=== PATIENT | female | born 1970 | race African-American/Black ===

== ENCOUNTER 2022-04-09 07:19 | Inpatient (IN) | payer MEDICARE, MEDICAID ==
[~2022-04-09] VITALS: Ht 165.1 cm; Wt 136.1 kg
[~2022-04-09 07:19] MED LIST: BACL20TA MT; CALC-1139 MT; DULO60CA45 MT; FERR325T6 MT; GABA-290 MT; LISI-186 MT; OXCA300T31 MT; PRED1TAB MT; PREG150C MT; TENOFOVIR; VITAMIN D
[2022-04-09] MEDS ORDERED: MEROPENEM 1,000 MG in SODIUM CHLORIDE 0.9% 100 ML IV ONE (07:30)
[2022-04-09] MEDS ORDERED: VANCOMYCIN 1G PREMIX 200 ML IV ONE (07:30)
[2022-04-09 08:31] LABS: BASOPHILS % 0.4 % (0.0-2.0); HEMATOCRIT. 36.3 % (36.0-48.0); HEMOGLOBIN. 11.7 g/dL (12.0-16.0); LYMPHOCYTES % 8.1 % (20.0-50.0); MEAN CORPUSCULAR HEMOGLOBIN 29.3 pg (28.0-32.0); MEAN CORPUSCULAR VOLUME 90.9 fL (81.0-99.0); MEAN PLATELET VOLUME 8.8 fl (7.4-10.4); NEUTROPHILS % 78.5 % (40.0-76.0); PLATELET 213 x1000/uL (130-400); RED CELL DISTRIBUTION WIDTH 15.5 % (11.6-14.6)
[2022-04-09 08:39] LABS: CHLORIDE 102 mEq/L (98-107)
[2022-04-09 08:41] LABS: INR 1.1; PROTHROMBIN TIME 12.1 sec (9.6-11.0)
[2022-04-09] MEDS ORDERED: METH1TAB33 PO (08:58)
[2022-04-09] MEDS ORDERED: ACETAMINOPHEN 650MG SUPP PR ONE (09:00)
[2022-04-09 09:06] LABS: BG BASE EXCESS -6.1 mmol/L (-2.0-2.0); BG CARBOXYHEMOGLOBIN 0.9 % (0.5-1.5); BG DEOXYHEMOGLOBIN 4.3 % (0.0-5.0); BG FRACTION INSPIRED OXYGEN 21; BG HCO3 ACT 18.1 mmol/L (22.0-26.0); BG METHEMOGLOBIN 0.3 % (0.0-1.5); BG OXYGEN SATURATION 95.6 % (92.0-98.5); BG OXYHEMOGLOBIN 94.5 % (94.0-97.0); BG PCO2 31.7 mmHg (35.0-45.0); BG PH 7.375 (7.350-7.450); BG PO2 85.6 mmHg (75.0-100.0); BG SAMPLE SITE RIGHT RADIAL; BG TOTAL HEMOGLOBIN 12.2 g/dL (12.0-18.0); BG VENT MODE ROOM AIR
[2022-04-09] MEDS ORDERED: IOHEXOL-350 100 ML BOTTLE ONE (09:07)
[2022-04-09] MEDS ORDERED: SODIUM CHLORIDE 0.9% 1000ML BAG (SEPSIS BOLUS) IV ONE (09:15)
[2022-04-09 09:24] LABS: CLARITY URINE TURBID (CLEAR); COLOR URINE YELLOW (YELLOW); KETONES URINE NEGATIVE (NEGATIVE); LEUKOCYTE ESTERASE URINE 3+ (NEGATIVE); NITRITE URINE NEGATIVE (NEGATIVE); OCCULT BLOOD URINE 3+ (NEGATIVE); PROTEIN URINE 3+ (NEGATIVE); SPECIFIC GRAVITY URINE 1.009 (1.005-1.030); UROBILINOGEN URINE 0.2 E.U./dL (0.2-1.0)
[2022-04-09 14:00] VITALS: BP 102/55
[2022-04-09] MEDS ORDERED: CEFTRIAXONE 1 G PREMIX 50 ML IV SCH (14:00)
[2022-04-09] MEDS ORDERED: ONDANSETRON HCL 4MG/2ML INJ IV PRN (14:00)
[2022-04-09 14:24] VITALS: BP 122/71
[2022-04-09] MEDS: SODIUM CHLORIDE 0.9% 1,000 ML IV SCH (14:35)
[2022-04-09] MEDS ORDERED: DIGOXIN 500MCG/2ML AMP IV NR (14:45)
[2022-04-09 16:00] VITALS: BP 112/70
[2022-04-09] MEDS: CEFTRIAXONE 1,000 MG in DEXTROSE 5% WATER 50 ML IV SCH (16:15)
[2022-04-09 17:41] VITALS: BP 104/71
[2022-04-09 20:00] VITALS: BP 102/57
[2022-04-09] MEDS: ACETAMINOPHEN 650MG/20.3ML UDC PO PRN (20:31)
[2022-04-09 22:00] VITALS: BP 106/61
[2022-04-10] VITALS (14 sets, daily range): BP systolic 100–164; BP diastolic 50–100
[2022-04-10] MEDS: SODIUM CHLORIDE 0.9% 1,000 ML IV SCH ×3 (00:05→20:30)
[2022-04-10 06:04] LABS: CHLORIDE 112 mEq/L (98-107)
[2022-04-10 06:13] LABS: HEMOGLOBIN. 11.1 g/dL (12.0-16.0); MEAN CORPUSCULAR HEMOGLOBIN 30.2 pg (28.0-32.0); MEAN CORPUSCULAR VOLUME 90.1 fL (81.0-99.0); MEAN PLATELET VOLUME 9.1 fl (7.4-10.4); PLATELET 164 x1000/uL (130-400); RED BLOOD CELL COUNT 3.66 mill/uL (4.2-5.4); RED CELL DISTRIBUTION WIDTH 15.7 % (11.6-14.6)
[2022-04-10 06:28] LABS: DIGOXIN 0.8 ng/mL (0.9-2.0)
[2022-04-10 09:03] LABS: PLATELET ESTIMATE NORMAL
[2022-04-10] MEDS: ACETAMINOPHEN 650MG/20.3ML UDC PO PRN (11:28)
[2022-04-10] MEDS: CEFTRIAXONE 1,000 MG in DEXTROSE 5% WATER 50 ML IV SCH (15:41)
[2022-04-10] MEDS: ENOXAPARIN 30MG/0.3ML SYR SUBCUT SCH (21:37)
[2022-04-11] VITALS (14 sets, daily range): BP systolic 119–161; BP diastolic 55–86
[2022-04-11] MEDS: SODIUM CHLORIDE 0.9% 1,000 ML IV SCH ×2 (06:00→16:23)
[2022-04-11] MEDS: ENOXAPARIN 30MG/0.3ML SYR SUBCUT SCH ×2 (09:00→21:32)
[2022-04-11 10:08] LABS: HEMATOCRIT. 29.6 % (36.0-48.0); HEMOGLOBIN. 9.7 g/dL (12.0-16.0); MEAN CORPUSCULAR VOLUME 91.6 fL (81.0-99.0); MEAN PLATELET VOLUME 9.5 fl (7.4-10.4); PLATELET 153 x1000/uL (130-400); RED BLOOD CELL COUNT 3.23 mill/uL (4.2-5.4); RED CELL DISTRIBUTION WIDTH 15.5 % (11.6-14.6)
[2022-04-11 10:12] LABS: CHLORIDE 111 mEq/L (98-107)
[2022-04-11] MEDS ORDERED: POTASSIUM CHLORIDE 20MEQ TABLET SR PO NR (11:15)
[2022-04-11 14:17] LABS: PLATELET ESTIMATE NORMAL
[2022-04-11] MEDS: CEFTRIAXONE 1,000 MG in DEXTROSE 5% WATER 50 ML IV SCH (16:00)
[2022-04-11] MEDS: LOSARTAN POTASSIUM 50 MG TABLET PO SCH (16:43)
[2022-04-11] MEDS: ACETAMINOPHEN 650MG/20.3ML UDC PO PRN (21:31)
[2022-04-11] MEDS ORDERED: AMIKACIN 500MG in SODIUM CHLORIDE 0.9% 100ML IV NR (22:30)
[2022-04-12] VITALS (17 sets, daily range): BP systolic 117–160; BP diastolic 62–99
[2022-04-12] MEDS: ACETAMINOPHEN 650MG/20.3ML UDC PO PRN ×2 (03:15→15:41)
[2022-04-12] MEDS: SODIUM CHLORIDE 0.9% 1,000 ML IV SCH ×3 (03:25→22:58)
[2022-04-12] MEDS: AMIKACIN SULFATE 350 MG in SODIUM CHLORIDE 0.9% 100 ML IV SCH ×2 (06:41→13:24)
[2022-04-12] MEDS: LOSARTAN POTASSIUM 50 MG TABLET PO SCH (09:17)
[2022-04-12] MEDS: ENOXAPARIN 30MG/0.3ML SYR SUBCUT SCH ×2 (09:17→21:53)
[2022-04-12] MEDS ORDERED: FOSF3PAC MT (11:52)
[2022-04-12] MEDS: GABAPENTIN 300MG CAPSULE PO SCH ×2 (14:48→22:57)
[2022-04-12] MEDS: DULOXETINE HCL 60MG DR CAPSULE PO SCH (14:49)
[2022-04-12] MEDS: PREDNISONE 1MG TABLET PO SCH (15:42)
[2022-04-12 16:37] LABS: CHLORIDE 110 mEq/L (98-107)
[2022-04-12] MEDS: OXCARBAZEPINE 300MG TABLET PO SCH (17:07)
[2022-04-12] MEDS: BACLOFEN 10MG TABLET PO SCH (17:07)
[2022-04-12] MEDS: PREGABALIN 75MG CAPSULE PO SCH (21:51)
[2022-04-12] MEDS ORDERED: GABAPENTIN 300MG CAPSULE PO SCH (22:00)
[2022-04-12] MEDS: AMIKACIN 500MG in SODIUM CHLORIDE 0.9% 100ML IV SCH (22:58)
[2022-04-13] VITALS (17 sets, daily range): BP systolic 129–160; BP diastolic 69–94
[2022-04-13] MEDS: GABAPENTIN 300MG CAPSULE PO SCH ×3 (06:22→21:01)
[2022-04-13 06:32] LABS: CHLORIDE 109 mEq/L (98-107)
[2022-04-13 06:43] LABS: BASOPHILS % 0.7 % (0.0-2.0); HEMATOCRIT. 30.1 % (36.0-48.0); LYMPHOCYTES % 11.9 % (20.0-50.0); MEAN CORPUSCULAR HEMOGLOBIN 29.7 pg (28.0-32.0); MEAN CORPUSCULAR VOLUME 89.6 fL (81.0-99.0); MEAN PLATELET VOLUME 9.5 fl (7.4-10.4); MONOCYTES % 10.8 % (2.0-8.0); NEUTROPHILS % 75.6 % (40.0-76.0); PLATELET 229 x1000/uL (130-400); RED BLOOD CELL COUNT 3.36 mill/uL (4.2-5.4); RED CELL DISTRIBUTION WIDTH 15.7 % (11.6-14.6)
[2022-04-13] MEDS: PREGABALIN 75MG CAPSULE PO SCH ×2 (08:20→21:00)
[2022-04-13] MEDS: BACLOFEN 10MG TABLET PO SCH ×3 (08:21→16:29)
[2022-04-13] MEDS: PREDNISONE 1MG TABLET PO SCH (08:21)
[2022-04-13] MEDS: OXCARBAZEPINE 300MG TABLET PO SCH ×2 (08:22→16:40)
[2022-04-13] MEDS: LOSARTAN POTASSIUM 50 MG TABLET PO SCH (08:23)
[2022-04-13] MEDS: FERROUS SULFATE 325MG TABLET PO SCH (08:23)
[2022-04-13] MEDS: DULOXETINE HCL 60MG DR CAPSULE PO SCH (08:23)
[2022-04-13] MEDS: SODIUM CHLORIDE 0.9% 1,000 ML IV SCH (08:24)
[2022-04-13] MEDS: ENOXAPARIN 30MG/0.3ML SYR SUBCUT SCH ×2 (08:24→21:00)
[2022-04-13] MEDS: AMIKACIN 500MG in SODIUM CHLORIDE 0.9% 100ML IV SCH ×2 (08:24→20:59)
[2022-04-13] MEDS ORDERED: FOSF3PAC MT (15:28)
[2022-04-13] MEDS ORDERED: DIPHENHYDRAMINE 25MG CAPSULE PO PRN (19:15)
[2022-04-14] VITALS (11 sets, daily range): BP systolic 115–151; BP diastolic 50–90
[2022-04-14] MEDS: GABAPENTIN 300MG CAPSULE PO SCH ×3 (06:06→21:37)
[2022-04-14 08:26] LABS: HEMATOCRIT. 28.8 % (36.0-48.0); HEMOGLOBIN. 9.7 g/dL (12.0-16.0); MEAN CORPUSCULAR HEMOGLOBIN 29.8 pg (28.0-32.0); MEAN CORPUSCULAR VOLUME 88.3 fL (81.0-99.0); MEAN PLATELET VOLUME 9.1 fl (7.4-10.4); PLATELET 311 x1000/uL (130-400); RED BLOOD CELL COUNT 3.26 mill/uL (4.2-5.4); RED CELL DISTRIBUTION WIDTH 15.9 % (11.6-14.6)
[2022-04-14 08:40] LABS: CHLORIDE 105 mEq/L (98-107)
[2022-04-14] MEDS: AMIKACIN 500MG in SODIUM CHLORIDE 0.9% 100ML IV SCH ×2 (08:56→21:37)
[2022-04-14] MEDS: BACLOFEN 10MG TABLET PO SCH ×3 (08:56→18:35)
[2022-04-14] MEDS: ENOXAPARIN 30MG/0.3ML SYR SUBCUT SCH ×2 (08:56→21:37)
[2022-04-14] MEDS: PREDNISONE 1MG TABLET PO SCH (08:57)
[2022-04-14] MEDS: FERROUS SULFATE 325MG TABLET PO SCH (08:57)
[2022-04-14] MEDS: DULOXETINE HCL 60MG DR CAPSULE PO SCH (08:57)
[2022-04-14] MEDS: PREGABALIN 75MG CAPSULE PO SCH ×2 (08:57→21:37)
[2022-04-14] MEDS: LOSARTAN POTASSIUM 50 MG TABLET PO SCH (08:57)
[2022-04-14] MEDS: OXCARBAZEPINE 300MG TABLET PO SCH ×2 (08:57→18:35)
[2022-04-14 11:24] LABS: NUCLEATED RED BLOOD CELLS 1 /100 WBC; PLATELET ESTIMATE NORMAL
[2022-04-14] MEDS ORDERED: POTASSIUM CHLORIDE 20MEQ TABLET SR PO SCH (18:45)
[2022-04-14] MEDS ORDERED: LACTULOSE 20G/30ML UDC PO PRN (19:00)
[2022-04-14] MEDS: LACTULOSE 20G/30ML UDC PO PRN (19:02)
[2022-04-14] MEDS ORDERED: LACTULOSE 20G/30ML UDC PO SCH (22:00)
[2022-04-15] VITALS (8 sets, daily range): BP systolic 113–125; BP diastolic 56–71
[2022-04-15] MEDS: GABAPENTIN 300MG CAPSULE PO SCH ×3 (05:34→21:09)
[2022-04-15] MEDS: DULOXETINE HCL 60MG DR CAPSULE PO SCH (09:09)
[2022-04-15] MEDS: ENOXAPARIN 30MG/0.3ML SYR SUBCUT SCH ×2 (09:09→21:00)
[2022-04-15] MEDS: PREGABALIN 75MG CAPSULE PO SCH ×2 (09:09→21:00)
[2022-04-15] MEDS: FERROUS SULFATE 325MG TABLET PO SCH (09:09)
[2022-04-15] MEDS: LOSARTAN POTASSIUM 50 MG TABLET PO SCH (09:09)
[2022-04-15] MEDS: OXCARBAZEPINE 300MG TABLET PO SCH ×2 (09:09→18:17)
[2022-04-15] MEDS: BACLOFEN 10MG TABLET PO SCH ×3 (09:17→18:18)
[2022-04-15] MEDS: AMIKACIN 500MG in SODIUM CHLORIDE 0.9% 100ML IV SCH ×2 (09:17→21:00)
[2022-04-15] MEDS: PREDNISONE 1MG TABLET PO SCH (09:34)
[2022-04-15] MEDS ORDERED: BISACODYL 10MG SUPP PR NR (12:15)
[2022-04-15] MEDS ORDERED: BISACODYL 10MG SUPP PR PRN (12:15)
[2022-04-15 16:12] LABS: CHLORIDE 102 mEq/L (98-107)
[2022-04-15] MEDS ORDERED: POTASSIUM CHLORIDE 20MEQ TABLET SR PO NR (20:45)
[2022-04-16] VITALS (9 sets, daily range): BP systolic 113–127; BP diastolic 59–69
[2022-04-16] MEDS: GABAPENTIN 300MG CAPSULE PO SCH ×3 (05:34→22:26)
[2022-04-16] MEDS: ACETAMINOPHEN 650MG/20.3ML UDC PO PRN (05:35)
[2022-04-16] MEDS: ENOXAPARIN 30MG/0.3ML SYR SUBCUT SCH ×2 (08:55→21:28)
[2022-04-16] MEDS: PREGABALIN 75MG CAPSULE PO SCH ×2 (08:56→22:26)
[2022-04-16] MEDS: PREDNISONE 1MG TABLET PO SCH (08:56)
[2022-04-16] MEDS: LOSARTAN POTASSIUM 50 MG TABLET PO SCH (08:57)
[2022-04-16] MEDS: FERROUS SULFATE 325MG TABLET PO SCH (08:57)
[2022-04-16] MEDS: OXCARBAZEPINE 300MG TABLET PO SCH ×2 (08:57→17:50)
[2022-04-16] MEDS: DULOXETINE HCL 60MG DR CAPSULE PO SCH (08:57)
[2022-04-16] MEDS: BACLOFEN 10MG TABLET PO SCH ×3 (08:57→17:50)
[2022-04-16] MEDS: AMIKACIN 500MG in SODIUM CHLORIDE 0.9% 100ML IV SCH ×2 (08:58→21:28)
[2022-04-17] VITALS: BP 109/55
[2022-04-17 04:00] VITALS: BP 106/67
[2022-04-17] MEDS: GABAPENTIN 300MG CAPSULE PO SCH ×3 (06:31→21:02)
[2022-04-17 08:00] VITALS: BP 120/69
[2022-04-17] MEDS: OXCARBAZEPINE 300MG TABLET PO SCH ×2 (09:53→17:54)
[2022-04-17] MEDS: DULOXETINE HCL 60MG DR CAPSULE PO SCH (09:53)
[2022-04-17] MEDS: LOSARTAN POTASSIUM 50 MG TABLET PO SCH (09:53)
[2022-04-17] MEDS: ENOXAPARIN 30MG/0.3ML SYR SUBCUT SCH ×2 (09:53→21:02)
[2022-04-17] MEDS: PREDNISONE 1MG TABLET PO SCH (09:53)
[2022-04-17] MEDS: BACLOFEN 10MG TABLET PO SCH ×3 (09:54→17:54)
[2022-04-17] MEDS: PREGABALIN 75MG CAPSULE PO SCH ×2 (09:54→21:02)
[2022-04-17] MEDS: FERROUS SULFATE 325MG TABLET PO SCH (09:54)
[2022-04-17 12:00] VITALS: BP 133/66
[2022-04-17 16:00] VITALS: BP 128/70
[2022-04-17 20:00] VITALS: BP 101/58
[2022-04-18] VITALS: BP 107/58
[2022-04-18 04:00] VITALS: BP 118/69
[2022-04-18] MEDS: GABAPENTIN 300MG CAPSULE PO SCH ×3 (06:52→21:43)
[2022-04-18 08:00] VITALS: BP 121/67
[2022-04-18] MEDS: LOSARTAN POTASSIUM 50 MG TABLET PO SCH (09:15)
[2022-04-18] MEDS: PREGABALIN 75MG CAPSULE PO SCH ×2 (09:16→21:43)
[2022-04-18] MEDS: BACLOFEN 10MG TABLET PO SCH ×3 (09:16→17:27)
[2022-04-18] MEDS: FERROUS SULFATE 325MG TABLET PO SCH (09:16)
[2022-04-18] MEDS: PREDNISONE 1MG TABLET PO SCH (09:16)
[2022-04-18] MEDS: DULOXETINE HCL 60MG DR CAPSULE PO SCH (09:16)
[2022-04-18] MEDS: ENOXAPARIN 30MG/0.3ML SYR SUBCUT SCH (09:17)
[2022-04-18] MEDS: OXCARBAZEPINE 300MG TABLET PO SCH ×2 (11:48→17:26)
[2022-04-18 12:00] VITALS: BP 107/68
[2022-04-18 16:00] VITALS: BP 109/79
[2022-04-18 16:55] LABS: CHLORIDE 103 mEq/L (98-107)
[2022-04-18] MEDS: LACTULOSE 20G/30ML UDC PO PRN (17:25)
[2022-04-18 20:17] VITALS: BP 116/68
[2022-04-18] MEDS: ENOXAPARIN 40MG/0.4ML SYR SUBCUT SCH (21:45)
[2022-04-19] VITALS (7 sets, daily range): BP systolic 90–119; BP diastolic 56–68
[2022-04-19] MEDS: GABAPENTIN 300MG CAPSULE PO SCH ×3 (06:38→21:29)
[2022-04-19 07:36] LABS: BASOPHILS % 0.7 % (0.0-2.0); EOSINOPHILS % 1.6 % (0.0-5.0); HEMATOCRIT. 31.2 % (36.0-48.0); HEMOGLOBIN. 10.5 g/dL (12.0-16.0); LYMPHOCYTES % 16.2 % (20.0-50.0); MEAN CORPUSCULAR HEMOGLOBIN 30.5 pg (28.0-32.0); MEAN CORPUSCULAR VOLUME 90.6 fL (81.0-99.0); MEAN PLATELET VOLUME 8.4 fl (7.4-10.4); MONOCYTES % 6.3 % (2.0-8.0); NEUTROPHILS % 75.2 % (40.0-76.0); PLATELET 572 x1000/uL (130-400); RED BLOOD CELL COUNT 3.45 mill/uL (4.2-5.4); RED CELL DISTRIBUTION WIDTH 16.1 % (11.6-14.6)
[2022-04-19 07:48] LABS: CHLORIDE 103 mEq/L (98-107)
[2022-04-19] MEDS: ENOXAPARIN 40MG/0.4ML SYR SUBCUT SCH ×2 (09:07→21:00)
[2022-04-19] MEDS: PREDNISONE 1MG TABLET PO SCH (09:08)
[2022-04-19] MEDS: OXCARBAZEPINE 300MG TABLET PO SCH ×2 (09:08→17:26)
[2022-04-19] MEDS: DULOXETINE HCL 60MG DR CAPSULE PO SCH (09:08)
[2022-04-19] MEDS: PREGABALIN 75MG CAPSULE PO SCH ×2 (09:08→21:00)
[2022-04-19] MEDS: BACLOFEN 10MG TABLET PO SCH ×3 (09:08→17:26)
[2022-04-19] MEDS: LOSARTAN POTASSIUM 50 MG TABLET PO SCH (09:08)
[2022-04-19] MEDS: FERROUS SULFATE 325MG TABLET PO SCH (09:09)
[2022-04-19] MEDS ORDERED: POTASSIUM CHLORIDE 20MEQ TABLET SR PO NR (12:00)
[2022-04-20] VITALS (8 sets, daily range): BP systolic 96–126; BP diastolic 52–89
[2022-04-20] MEDS: GABAPENTIN 300MG CAPSULE PO SCH ×3 (05:32→21:04)
[2022-04-20 07:20] LABS: BASOPHILS % 0.6 % (0.0-2.0); EOSINOPHILS % 1.5 % (0.0-5.0); HEMOGLOBIN. 10.6 g/dL (12.0-16.0); LYMPHOCYTES % 17.5 % (20.0-50.0); MEAN CORPUSCULAR HEMOGLOBIN 30.1 pg (28.0-32.0); MEAN CORPUSCULAR VOLUME 90.9 fL (81.0-99.0); MEAN PLATELET VOLUME 8.6 fl (7.4-10.4); MONOCYTES % 5.7 % (2.0-8.0); NEUTROPHILS % 74.7 % (40.0-76.0); PLATELET 551 x1000/uL (130-400); RED BLOOD CELL COUNT 3.52 mill/uL (4.2-5.4)
[2022-04-20 07:43] LABS: CHLORIDE 103 mEq/L (98-107)
[2022-04-20] MEDS: ENOXAPARIN 40MG/0.4ML SYR SUBCUT SCH ×2 (09:10→21:04)
[2022-04-20] MEDS: BACLOFEN 10MG TABLET PO SCH ×3 (09:11→18:09)
[2022-04-20] MEDS: PREGABALIN 75MG CAPSULE PO SCH ×2 (09:11→21:03)
[2022-04-20] MEDS: DULOXETINE HCL 60MG DR CAPSULE PO SCH (09:11)
[2022-04-20] MEDS: PREDNISONE 1MG TABLET PO SCH (09:11)
[2022-04-20] MEDS: OXCARBAZEPINE 300MG TABLET PO SCH ×2 (09:11→18:09)
[2022-04-20] MEDS: FERROUS SULFATE 325MG TABLET PO SCH (09:11)
[2022-04-20] MEDS: ACETAMINOPHEN 650MG/20.3ML UDC PO PRN (10:46)
[2022-04-21] VITALS: BP 111/69
[2022-04-21 04:00] VITALS: BP 114/64
[2022-04-21] MEDS: GABAPENTIN 300MG CAPSULE PO SCH ×2 (05:52→14:05)
[2022-04-21 08:00] VITALS: BP 129/78
[2022-04-21] MEDS: FERROUS SULFATE 325MG TABLET PO SCH (09:33)
[2022-04-21] MEDS: PREGABALIN 75MG CAPSULE PO SCH (09:33)
[2022-04-21] MEDS: DULOXETINE HCL 60MG DR CAPSULE PO SCH (09:33)
[2022-04-21] MEDS: BACLOFEN 10MG TABLET PO SCH ×3 (09:33→16:33)
[2022-04-21] MEDS: PREDNISONE 1MG TABLET PO SCH (09:35)
[2022-04-21] MEDS: OXCARBAZEPINE 300MG TABLET PO SCH (09:35)
[2022-04-21] MEDS: ENOXAPARIN 40MG/0.4ML SYR SUBCUT SCH (09:37)
[2022-04-21 12:00] VITALS: BP 114/64
== END 2022-04-21 19:10 | DRG 871 ==
LOC: ER 07:19 → EDBEDREQTM 08:06 → EDBEDREQSVC 08:06 → EDBEDREQ 08:06 → 5EST 09:35 → EDBEDREQTM 09:36 → EDBEDREQ 09:36 → CANRESERV 10:48 → ENRESERV 10:48 → EDBEDREQSVC 11:22 → EDBEDREQTM 11:24 → ENRESERV 12:04 → 6EST 04-14 17:14
PROVIDERS: ADMIT Family Medicine Adult Medicine; ATTEND Family Medicine Adult Medicine
DX: A41.9 Sepsis, unspecified organism (principal); E43 Unspecified severe protein-calorie malnutrition; N17.0 Acute kidney failure with tubular necrosis; G93.41 Metabolic encephalopathy; G82.50 Quadriplegia, unspecified; E87.1 Hypo-osmolality and hyponatremia; N39.0 Urinary tract infection, site not specified; Z68.42 Body mass index [BMI] 45.0-49.9, adult; K59.2 Neurogenic bowel, not elsewhere classified; E11.9 Type 2 diabetes mellitus without complications; Z20.822 Contact with and (suspected) exposure to COVID-19; R74.01 Elevation of levels of liver transaminase levels; E66.01 Morbid (severe) obesity due to excess calories; R26.9 Unspecified abnormalities of gait and mobility; N31.9 Neuromuscular dysfunction of bladder, unspecified; D64.9 Anemia, unspecified; B96.1 Klebsiella pneumoniae [K. pneumoniae] as the cause of diseases classified elsewhere; Z86.73 Personal history of transient ischemic attack (TIA), and cerebral infarction without residual deficits; Z88.0 Allergy status to penicillin; Z99.3 Dependence on wheelchair; Z93.50 Unspecified cystostomy status
CPT/HCPCS: 36415; 36600; 70496; 71045; 80048; 80053; 80150; 80162; 81003; 82140; 82375; 82805; 82962; 83605; 84145; 84484; 85025; 87077; 87186; 87426; 93005; 93970; 97110; 97162; 97166; 99291; A6261; J0278; J0696; J1160; J1650; J2185; J3370; J7030; J7050; J7060; J7512; Q9967; U0003; U0005; A4315